=== PATIENT | female | born 1975 | race Hispanic/Latino ===

== ENCOUNTER 2019-10-10 02:36 | Emergency (ER) | payer OTHER ==
[~2019-10-10 02:36] MED LIST: ALBU8.5H8 IH; OMEP20TA2 PO
[2019-10-10] MEDS ORDERED: ONDANSETRON ODT 4 MG TAB ONE (03:38)
[2019-10-10] MEDS ORDERED: HYDROCODONE/ACETAMINOPHEN 5/325 MG TAB ONE (03:39)
== END 2019-10-10 06:00 | disposition home or self-care (01) ==
LOC: EDH 02:36
DX: S00.83XA Contusion of other part of head, initial encounter (principal); S09.90XA Unspecified injury of head, initial encounter; J45.909 Unspecified asthma, uncomplicated; K21.9 Gastro-esophageal reflux disease without esophagitis; Z90.49 Acquired absence of other specified parts of digestive tract; Z88.2 Allergy status to sulfonamides; Y08.89XA Assault by other specified means, initial encounter; Y93.89 Activity, other specified; Y92.89 Other specified places as the place of occurrence of the external cause; Y99.8 Other external cause status
CPT/HCPCS: 70450; 70486; 81025